=== PATIENT | female | born 1940 | race Caucasian/White ===

== ENCOUNTER → 2019-05-01 | Outpatient (CLI) | payer MEDICARE, BC, OTHER ==
[~2019-05-01] MED LIST: AMLO5TAB6 PO; FEMA2.5T4 PO; LORA-674 PO; METO25TA4 PO; OXYC1TAB23 PO; PANT40TA3 PO; PERC5TAB12 PO; SPIR1CAP INH; SYMB16INH INH
[2019-05-01 11:48] LABS: HEMATOCRIT 33.8 % (36.0-47.0); HEMOGLOBIN 10.6 g/dl (12.0-15.5); MEAN CORPUSCULAR HEMOGLOBIN 33.2 pg (27.0-33.0); MEAN CORPUSCULAR HGB CONC 31.4 g/dl (32.0-36.5); PLATELET COUNT, AUTOMATED 315 10^3/uL (150-450); RED BLOOD COUNT 3.19 10^6/uL (4.00-5.40); WHITE BLOOD COUNT 11.8 10^3/uL (4.0-10.0)
[2019-05-01 11:58] LABS: INR 1.01
[2019-05-01 12:07] LABS: POTASSIUM SERUM 4.5 MEQ/L (3.5-5.1)
--- NOTE | 2019-05-01 12:55 | REP ---
Two-view chest: 05/02/2019. Indication: Preoperative assessment. Comparison: None. Findings: The lungs are hyperinflated bilaterally with increased interstitial markings most consistent with COPD. Leveling of the diaphragms is noted. There is no evidence of airspace consolidation, pleural effusion or pneumothorax. The cardiac silhouette is unremarkable. Impression: No acute cardiopulmonary process. COPD. Electronically Signed by Kvng Mejia DO 05/01/2019 12:47 P
--- NOTE | 2019-05-02 21:31 | ECGEPIP ---
[facility] Test Date: 2019-05-01 Pat Name: RONAL RIVAS Department: Room: - Gender: Female Pumpman: SHELLIE : 1940 Requested By: KRAIG HILTON Order Number: [id number] Reading MD: Dorian Teran Measurements Intervals [place] Rate: 96 P: 87 WY: 139 QRS: 79 QRSD: 89 T: 90 QT: 347 QTc: 440 Interpretive Statements SINUS RHYTHM MILD IVCD NO PRIOR TRACING Electronically Signed on 05-02-2019 21:30:36 EST by Dorian Teran
== END ==
LOC: M RAD 10:51
PROVIDERS: ATTEND Orthopaedic Surgery Sports Medicine
DX: Z01.810 Encounter for preprocedural cardiovascular examination (principal); S52.021A Displaced fracture of olecranon process without intraarticular extension of right ulna, initial encounter for closed fracture; J44.9 Chronic obstructive pulmonary disease, unspecified

== ENCOUNTER 2019-05-02 12:56 | Day surgery (SDC) | payer MEDICARE, BC, OTHER ==
[~2019-05-02] VITALS: Ht 165.1 cm; Wt 37.2 kg
[~2019-05-02 12:56] MED LIST changes: +LIDOCAINE 1% MDV 20ML VIAL SQ PRN; +LR 1,000 ML IV ONE; +NICOTINE 21MG/24HR 1 EA TRANSDERMAL TD PRN; -PERC5TAB12 PO
[2019-05-02] MEDS ORDERED: LIDOCAINE 1% MDV 20ML VIAL ONE (12:57)
[2019-05-02] MEDS ORDERED: dexameTHASONE 10 MG/1 ML VIAL PRES.FREE (J1100) ONE (12:57)
[2019-05-02] MEDS ORDERED: LIDOCAINE 2% INJ 100 MG/5 ML SDV (FOR ANES.) As Ordered ONE (13:12)
[2019-05-02] MEDS ORDERED: PROPOFOL 200 MG/20 ML VIAL As Ordered ONE (13:12)
[2019-05-02] MEDS ORDERED: fentaNYL 100 MCG/2 ML INJECTION (J3010) As Ordered ONE ×2 (13:13→14:47)
[2019-05-02] MEDS ORDERED: ALBUTEROL SULFATE 2.5 MG/0.5 ML INH NEB SOLN As Ordered ONE (14:11)
[2019-05-02] MEDS ORDERED: ALBUTEROL SULFATE 2.5 MG/0.5 ML INH NEB SOLN INH ONE (14:15)
[2019-05-02] MEDS ORDERED: BUPIVACAINE HCL 0.25% 10 ML VIAL As Ordered ONE (14:39)
[2019-05-02] MEDS ORDERED: BUPIVACAINE HCL 0.25% 30 ML VIAL As Ordered ONE (14:39)
[2019-05-02] MEDS ORDERED: BUPIVACAINE HCL 0.5% 30 ML VIAL As Ordered ONE (14:47)
[2019-05-02] MEDS ORDERED: MIDAZOLAM INJ 2 MG/2 ML VIAL (J2250) As Ordered ONE (14:48)
[2019-05-02] MEDS ORDERED: ROCURONIUM BROMIDE 50 MG/5 ML VIAL As Ordered ONE (15:13)
[2019-05-02] MEDS ORDERED: fentaNYL 100 MCG/2 ML INJECTION (J3010) IV ONE (15:15)
[2019-05-02] MEDS ORDERED: MIDAZOLAM INJ 2 MG/2 ML VIAL (J2250) IV ONE (15:15)
[2019-05-02] MEDS ORDERED: METOCLOPRAMIDE INJ 10MG/2ML VIAL (J2765) As Ordered ONE (15:34)
[2019-05-02] MEDS ORDERED: ceFAZolin 2 GM/D5W 50 ML IV BAG (J0690 PER 500MG) As Ordered ONE (15:43)
[2019-05-02] MEDS ORDERED: PHENYLephrine HCL 500 MCG/5 ML (100MCG/ML) SYRINGE (J2370) As Ordered ONE (15:43)
[2019-05-02] MEDS ORDERED: ONDANSETRON 4MG/2ML VIAL (J2405) As Ordered ONE (16:15)
--- NOTE | 2019-05-02 17:11 | REP ---
Four fluoroscopic images of the right elbow: 05/02/2019. Indication: Intraoperative guidance. Comparison: None. Findings: Four intraoperative fluoroscopic images were obtained for operative guidance. The hardware appears intact. Alignment appears anatomic. Impression: Fluoroscopy provided for intraoperative guidance. Please see operative dictation for details. Electronically Signed by Kvng Mejia DO 05/02/2019 05:02 P
[2019-05-02] MEDS ORDERED: oxyCODONE 5MG TAB PO PRN (17:30)
[2019-05-02] MEDS ORDERED: ACETAMINOPHEN TAB 650MG DOSE (2X325MG) PO PRN (17:30)
[2019-05-02] MEDS ORDERED: ONDANSETRON 4MG/2ML VIAL (J2405) IV PRN ×2 (17:30)
[2019-05-02] MEDS ORDERED: fentaNYL 100 MCG/2 ML INJECTION (J3010) IV PRN (17:30)
[2019-05-02] MEDS ORDERED: MORPHINE 4 MG/ML 1ML VIAL/SYRINGE (J2270) IV PRN (17:30)
[2019-05-02] MEDS ORDERED: HYDROMORPHONE HCL 0.5 MG/ 0.5 ML SYRINGE (J1170 PER 1) IV PRN (17:30)
[2019-05-02] MEDS ORDERED: LR 1,000 ML IV SCH ×2 (17:30)
[2019-05-02] MEDS ORDERED: LABETALOL HCL 100 MG/20 ML VIAL As Ordered ONE (17:32)
[2019-05-02] MEDS: LABETALOL HCL 100 MG/20 ML VIAL IV PRN ×4 (17:35→17:50)
[2019-05-02] MEDS ORDERED: ALBUTEROL SULFATE 2.5 MG/0.5 ML INH NEB SOLN INH SCH (18:15)
[2019-05-02 23:15] VITALS: BP 128/50
[2019-05-03] VITALS (7 sets, daily range): BP systolic 116–153; BP diastolic 48–72
[2019-05-03] MEDS: PERCOCET 5MG/325MG TAB PO PRN ×2 (03:33→07:54)
[2019-05-03] MEDS ORDERED: PERC5TAB12 PO ×2 (06:21→06:23)
--- NOTE | 2019-05-03 07:42 | RO ---
DATE OF PROCEDURE: 05/02/2019 PREOPERATIVE DIAGNOSIS: Right olecranon fracture. POSTOPERATIVE DIAGNOSIS: Right olecranon fracture. PLANNED PROCEDURE: Open reduction internal fixation (ORIF) right olecranon. PROCEDURE PERFORMED: Open reduction internal fixation (ORIF) right olecranon. SURGEON: Dr. Jaron Gold EMPLOYMENT PROGRAMS ANALYST: [place] ANESTHESIA: General anesthetic plus perioperative block. OPERATIVE PREAMBLE: This 78-year-old female had a mechanical fall. She sustained a displaced olecranon fracture. We talked about the pros and cons and risks and benefits of going ahead with open reduction internal fixation. I reiterated these risks in preoperative holding and marked the right upper extremity and we proceeded to surgery. OPERATIVE REPORT: The patient was brought to the operating room theater. 2 grams of IV Ancef was administered. General anesthesia was induced. The patient was placed in the right lateral decubitus with the aid of the torres bag ward and a radiolucent arm board used to stabilize the upper extremity. An 18 inch tourniquet was applied to the upper extremity. All bony prominences were appropriately padded, including an axillary roll. Sequential compressive devices (SCDs) were used on the legs. The right upper extremity was prepped and draped in the usual sterile fashion. A preoperative time out was performed confirming the site, the patient and the surgery. Sterile Esmarch was used to exsanguinate the limb. The limb was elevated and tourniquet inflated to 250 mmHg. The tourniquet was taken down prior to end of the case. I made a longitudinal curvilinear incision and curved this around the lateral aspect of the olecranon tip. I carried this incision down through skin and subcutaneous tissue achieving meticulous hemostasis. I identified the fracture site. I cleaned the fracture site of any interposed hematoma and periosteum. I achieved a preliminary reduction using two 1.6 mm K-wires with the elbow in extension. This reduced the fracture nicely. Bone quality was very soft. I then selected a Synthes free contour olecranon four hole distal plate with proximal locking screws. I secured the plate down to the lateral side of the bone. Unfortunately, this was sitting a little bit oblique and up from the proximal end of the olecranon and as such I secured it more on the olecranon crest. I secured this down using an 18 mm long 3.5 mm fully threaded cortical screw in the oblong hole. I precontoured the proximal tip of the plate to achieve more appropriate anatomic curve around the proximal end of the ulna. I screwed the plate down to bone. This achieved more appropriate plate to bone contact. I then placed another cortical screw distally. This secured the plate nicely. I then turned my attention to the proximal end of the plate and inserted the locking screws. I took intraoperative fluoroscopy throughout to ensure the plate was appropriately situated and the reduction was adequate. The joint surface had an approximately small 1 mm less step in edge, but at the plate surface this appeared to be anatomic and I sacrificed a slight mal reduction of the joint surface for a good plate to bone contact given her extremely thin skin at the elbow. I inserted two fully threaded cortical locking screws in the mid aspect of the plate that were a little bit too long and blocking her range of motion. I backed these out and changed them for shorter screws and range of motion was equal to preoperatively in terms of the extension that she was able to achieve, 5 degrees to 135 degrees in full pronosupination. The fracture was stable in all directions with no grinding and no screws in the joint on fluoroscopy. The joint was thoroughly irrigated and K-wires were removed that were used to preliminarily hold the reduction. A longitudinal split that was used to get the plate right down to bone proximally was then closed with interrupted #0 Vicryl suture. Subcutaneous tissue was closed with interrupted #2-0 Vicryl suture. The tourniquet was taken down prior to the end of the case. The skin was cleaned with wet and dry dressing, followed by closure with horizontal #3-0 Ethilon sutures. Adaptic was placed, sterile 4x8 gauze with ABD dressing and sterile cast padding applied above the elbow in circumferential fashion down to the wrist. A 5x30 plaster of Kat was used to then fashion an above elbow plaster of Kat splint to the elbow in approximately 90 degrees of flexion and then overwrapped with sterile 6 inch Lobito bandage and upper extremity placed into a sling. The patient was transferred off the operating room table and taken to the postanesthesia care unit in stable condition. All sponge counts, needle and instrument counts were correct and there were no complications. Estimated blood loss 100 mL. The plan for the patient is to followup this week or early next in the clinic. She will be discharged home according to day surgery criteria when she is comfortable. Prescription has been sent to electronically to her pharmacy of choice. I will communicate this to her daughter after surgery.
[2019-05-03] MEDS ORDERED: TIOTROPIUM INHALER/CAPSULE (SPIRIVA) INH SCH (08:00)
[2019-05-03] MEDS ORDERED: SYMBICORT 160/4.5MCG INHALER 6GM INH SCH (08:00)
[2019-05-03] MEDS ORDERED: METOPROLOL TART 25 MG TABLET PO SCH (09:00)
[2019-05-03] MEDS ORDERED: LORATADINE 10 MG TAB PO SCH (09:00)
[2019-05-03] MEDS ORDERED: PANTOPRAZOLE 40MG TAB (PROTONIX) PO SCH (09:00)
[2019-05-03] MEDS ORDERED: amLODIPine 5 MG TAB PO SCH (09:00)
[2019-05-03] MEDS ORDERED: LETROZOLE 2.5 MG TAB PO SCH (09:00)
== END 2019-05-03 10:40 | disposition home or self-care (01) ==
LOC: M SDC 12:56 → M MS5PR 22:45 → M SDC 05-03 10:40
PROVIDERS: ATTEND Orthopaedic Surgery Sports Medicine
DX: S52.021A Displaced fracture of olecranon process without intraarticular extension of right ulna, initial encounter for closed fracture (principal); W19.XXXA Unspecified fall, initial encounter; Y92.89 Other specified places as the place of occurrence of the external cause; Y93.9 Activity, unspecified; Y99.9 Unspecified external cause status; I10 Essential (primary) hypertension; J44.9 Chronic obstructive pulmonary disease, unspecified; K21.9 Gastro-esophageal reflux disease without esophagitis; G47.30 Sleep apnea, unspecified; Z79.899 Other long term (current) drug therapy; Z85.3 Personal history of malignant neoplasm of breast
CPT/HCPCS: 24685; 76000; 94640; C1713; J0690; J1100; J2250; J2370; J2405; J2765; J3010